=== PATIENT | female | born 1995 | race Caucasian/White ===

== ENCOUNTER → 2023-02-08 11:03 | Outpatient (CLI) | payer OTHER, SELFPAY ==
[2023-02-08 11:48] LABS: Add Manual Diff / Slide Review NO; Basophils Absolute Auto 0 /uL (0-100); Basophils Percent Auto 0.4 % (0-2); Eosinophils Absolute Auto 100 /uL (0-450); Eosinophils Percent Auto 0.8 % (2-4); Hematocrit 40.5 % (36-46); Hemoglobin 14.1 g/dL (12.0-16.0); Lymphocytes Absolute Auto 1000 /uL (1100-4500); Lymphocytes Percent Auto 15.4 % (25-40); Mean Corpuscular HGB Conc 34.7 % (30-36); Mean Corpuscular Hemoglobin 31.7 PG (26-34); Mean Corpuscular Volume 91.3 fL (80-100); Monocytes Absolute Auto 300 /uL (0-900); Monocytes Percent Auto 4.7 % (3-14); Neutrophils Absolute Auto 5200 /uL (1500-7000); Neutrophils Percent Auto 78.7 % (50-75); Platelet Count 215 X10^3/uL (150-400); Red Blood Cell Count 4.44 X10^6/uL (4.0-5.2); Red Cell Distribution Width 12.5 % (11.6-14.8); White Blood Cell Count 6.6 X10^3/uL (4.5-11.0)
[2023-02-08 13:21] LABS: Hepatitis B Surface Antigen NEGATIVE s/c (NEGATIVE); Rubella Antibody IgG 12.9 IU/mL (>15)
[2023-02-08 13:36] LABS: HIV 1 & 2 Ab/Ag 4th Gen Combo NEGATIVE (NEGATIVE); Hep C Virus Ab w/Reflex Quant NEGATIVE s/c (NEGATIVE)
[2023-02-09 07:07] LABS: RPR Screen Non Reactive (Non Reactive)
[2023-02-09 13:40] LABS: Varicella IgG Antibody <135 index (Immune >165)
== END ==
PROVIDERS: Referring Provider Specialist; Visit Provider Specialist
DX: Z34.80 Encounter for supervision of other normal pregnancy, unspecified trimester (principal)
CPT/HCPCS: 36415; 80055; 86787; 86803; 86850; 86900; 86901; 87086; 87389

== ENCOUNTER → 2023-03-23 10:22 | Outpatient (CLI) | payer OTHER, SELFPAY ==
[2023-03-25 19:36] LABS: AFP, Serum 64.1 ng/mL (.); Estriol, Free 2.02 ng/mL (.); Inhibin A, Dimeric 244.05 pg/mL (.); Inhibin A, MoM 1.38 (.); Maternal Ethnicity Caucasian (.); Maternal Weight 130 lbs (.); Number of Fetuses No (.); OSBR Risk 1 IN 7603 (.); Results Report (.); Test Results *Screen Negative* (.); hCG, MoM 0.77 (.); hCG, Serum 23148 mIU/mL (.)
== END ==
PROVIDERS: Referring Provider Physician Assistant Medical; Visit Provider Physician Assistant Medical
DX: Z3A.19 19 weeks gestation of pregnancy (principal); Z34.82 Encounter for supervision of other normal pregnancy, second trimester
CPT/HCPCS: 36415; 82105; 82677; 84702; 86336

== ENCOUNTER → 2023-03-31 16:05 | Outpatient (CLI) | payer OTHER, SELFPAY ==
--- NOTE | 2023-03-31 16:07 | DI.US.S_ITS ---
PROCEDURE: US OB >= 14 WEEKS FETUS INDICATIONS: ANATOMY OUTSIDE/PRIOR DATING DATA: Last menstrual period (LMP): 11/09/2022. LMP-based estimated date of delivery (BRIANNA): 08/16/2023. First dating scan (date and location): 02/08/2023. Estimated date of delivery (BRIANNA) from first dating scan: 08/14/2023. The calculations are made using the clinical BRIANNA of 08/16/2023. TECHNIQUE: Real-time scanning was performed of the fetus, with image documentation and biometric measurements. Endovaginal scanning: Not performed COMPARISON: None. FINDINGS: General: A single living intrauterine gestation is present. Presentation: Vertex. Placenta: Placental position is posterior , without previa. Amniotic fluid index: 14 cm, normal range is 5-24 cm. Single deepest vertical pocket is 4.4 cm. heart rate: 157 beats per minute. Maternal cervical canal: 3.9 cm long. Normal lower limit is 2.5 cm. biometrics: Biparietal diameter: 4.8 cm, 20 weeks 4 days Head circumference: 18 cm, 20 weeks 3 days Abdominal circumference: 15 cm, 20 weeks 0 days Femur length: 3.2 cm, 20 weeks 1 day Clinically estimated gestational age: 20 weeks 2 days Composite gestational age from present scan: 20 weeks 3 days Estimated weight and percentile: 340 g, 42 percentile Anatomic survey: Neuro: Ventricles are non-dilated at less than 10 mm. Cisterna magna is normal at 3-11 mm. Cerebellum is normal in size and morphology. Nuchal skin fold: Normal at less than 6 mm between 14-21 weeks gestational age. Face: Nose and lips, facial profile are normal. Spine: No evidence for spina bifida. Heart: 4-chambered heart is present, with normal ventricular outflow tracts. Diaphragm: Diaphragm is intact. Stomach: Left-sided stomach is present. Kidneys: No hydronephrosis. Normal is less than 5 mm in 2nd trimester, less than 7 mm in 3rd trimester. Cord: 3-vessel cord has orthotopic insertion. Bladder: Normal in size. Extremities: All 4 extremities identified. IMPRESSION: Single living intrauterine at 20 weeks 2 days, BRIANNA 08/16/2023. Normal anatomy survey. Estimated weight of 346 g, 42 percentile. We strive to produce accurate, complete, and clear reports of imaging services. To assist us in improving patient care, this report was composed using standard report templates and voice recognition software. Therefore, it may contain abnormal punctuation, insertions and/or omissions. Occasional wrong-word or sound-alike substitutions may occur. Though we review the report and make efforts to correct it, we do recommend that the report be read carefully in proper context to recognize any text inaccuracies. Dictated by: Paolo Murphy M.D. on 03/31/2023 at 19:36 Approved by: Paolo Murphy M.D. on 03/31/2023 at 19:38
== END ==
PROVIDERS: Referring Provider Family Medicine; Visit Provider Family Medicine
DX: Z34.82 Encounter for supervision of other normal pregnancy, second trimester (principal); Z3A.20 20 weeks gestation of pregnancy
CPT/HCPCS: 76811

== ENCOUNTER → 2023-05-09 15:24 | Outpatient (CLI) | payer OTHER, SELFPAY | PROVIDERS: Visit Provider Family Medicine | DX: N76.0 Acute vaginitis (principal); B96.89 Other specified bacterial agents as the cause of diseases classified elsewhere | CPT/HCPCS: 87210 ==

== ENCOUNTER 2023-05-11 09:02 | Outpatient (CLI) | payer OTHER, SELFPAY ==
[2023-05-11 09:38] LABS: Appearance Urine UA SL CLOUDY; Bilirubin Urine UA NEGATIVE (NEGATIVE); Color Urine UA YELLOW; Glucose Urine UA NEGATIVE (Negative); Ketones Urine UA NEGATIVE (NEGATIVE); Leukocyte Esterase Urine UA 3+ (NEGATIVE); Nitrite Urine UA NEGATIVE (Negative); Occult Blood Urine UA TRACE-INTACT (Negative); Protein Urine UA NEGATIVE (Negative); Urobilinogen Urine UA 0.2 E.U./dL (0.2)
[2023-05-11 09:42] LABS: pH Urine UA 7.5 (4.5-8.0)
[2023-05-11 09:53] LABS: Bacteria Urine Many (>30); RBC Urine None Seen (0-5/HPF); WBC Urine 10-30/HPF (0-5/HPF)
[2023-05-11 09:54] LABS: Culture Indicated Urine Specimen Cultured; Squamous Epithelial Cell Urine 10-30 /HPF (0-5/HPF)
== END 2023-05-11 10:10 | disposition home or self-care (01) ==
LOC: LABOR 09:35 → OB 05-12 11:03
PROVIDERS: Referring Provider Family Medicine; Visit Provider Family Medicine
DX: O98.812 Other maternal infectious and parasitic diseases complicating pregnancy, second trimester (principal); O26.892 Other specified pregnancy related conditions, second trimester; M54.50 Low back pain, unspecified; Z3A.26 26 weeks gestation of pregnancy
CPT/HCPCS: 59025; 81001; 87086; G0378; G0379

== ENCOUNTER → 2023-05-13 07:45 | Outpatient (CLI) | payer OTHER, SELFPAY ==
[2023-05-13 10:18] LABS: GTT (PREG) 1 Hour PP 50gm Dose 155 mg/dL (76-139)
== END ==
PROVIDERS: Referring Provider Family Medicine; Visit Provider Family Medicine
DX: Z34.80 Encounter for supervision of other normal pregnancy, unspecified trimester (principal)
CPT/HCPCS: 36415; 82950

== ENCOUNTER → 2023-05-29 07:41 | Outpatient (CLI) | payer OTHER, SELFPAY ==
[2023-05-29 09:57] LABS: Glucose Fasting Gestational 78 mg/dL (76-95)
[2023-05-29 10:25] LABS: Glucose 1 Hour Gest 131 mg/dL (76-180)
[2023-05-29 11:00] LABS: Glucose Tol Interp,Gestational INTERPRETATION
[2023-05-29 12:54] LABS: Glucose 2 Hour Gest 115 mg/dL (76-155)
[2023-05-29 14:27] LABS: Glucose 3 Hour Gest 43 mg/dL (76-140)
== END ==
PROVIDERS: Referring Provider Family Medicine; Visit Provider Family Medicine
DX: O99.810 Abnormal glucose complicating pregnancy (principal)
CPT/HCPCS: 36415; 82951; 82952

== ENCOUNTER → 2023-07-21 10:51 | Outpatient (CLI) | payer OTHER, SELFPAY ==
[2023-07-22 16:02] LABS: Strep Grp B PCR POS for Grp B Strep
== END ==
PROVIDERS: Visit Provider Family Medicine
DX: Z34.80 Encounter for supervision of other normal pregnancy, unspecified trimester (principal)
CPT/HCPCS: 87653

== ENCOUNTER → 2023-08-11 16:32 | Outpatient (CLI) | payer OTHER, SELFPAY ==
[2023-08-11 19:56] LABS: Urine N gonorrhoeae NOT DETECTED
[2023-08-11 20:06] LABS: Urine Chlamydia NOT DETECTED
== END ==
PROVIDERS: Visit Provider Family Medicine
DX: O23.593 Infection of other part of genital tract in pregnancy, third trimester (principal)
CPT/HCPCS: 87491; 87591

== ENCOUNTER 2023-08-16 16:42 | Inpatient (IN) | payer OTHER, SELFPAY ==
--- NOTE | 2023-08-16 17:51 | PM.OBHP.IH.1 ---
OB HPI Date/Time Date of admission: 08/16/23 Date Patient Seen: 08/16/23 Time Patient Seen: 17:21 History of Present Condition Chief complaint: Date of Last Menstrual Period: 11/09/22 BRIANNA Calculator Estimated Delivery Date Method Current WG Current Estimate 08/16/23 LMP (Certain) 40w 0d Other Estimates 08/14/23 Ultrasound #1 40w 2d 08/16/23 Ultrasound #2 40w 0d Estimated Gestational Age (weeks): 40 : 2 Para: 1 care: good care Dating criteria OB: LMP confirmed by 1st trimester US Ultrasounds: normal 1st trimester US and normal mid trimester US Obstetrical complications: other (rubella and varicella non-immune) Medical complications OB: none Narrative: 28-year-old at [place] 40+0 weeks presenting with strong contractions q2-3 minutes. Was seen at clinic earlier today, cervical exam at that time to 3 cm dilated with bloody show. Endorses normal movement, denies leakage of fluid. complicated by maternal rubella and varicella non-immune status. Preadmission Labs Last OB Lab Results: Blood Type A Positive 08/16/23 18:00 Antibody Screen Negative 08/16/23 18:00 Hematocrit 40.7 % (36-46) 08/16/23 18:00 Hemoglobin 13.8 g/dL (12.0-16.0) 08/16/23 18:00 Hepatitis B Surface Antigen Negative s/c (NEGATIVE) 02/08/23 11:06 Hepatitis C Antibody Negative s/c (NEGATIVE) 02/08/23 11:06 Rubella Antibody 12.9 IU/mL (>15) L 02/08/23 11:06 Varicella-Zoster IgG Antibody <135 index (Immune >165) L 02/08/23 11:06 Glucose 1 Hour 155 mg/dL (76-139) H 05/13/23 09:12 Group B Streptococcus (PCR) Pos for grp b strep H 07/21/23 10:51 Glucose Tolerance Testin hr (abnormal) and 3 hr (normal) -: Chlamydia screen: negative and Gonorrhea screen: negative Genetic Screens: Quad screen: Normal Prior (ies) Past Pregnancies Del. Date GA/Weeks Labor Lgth Wt Sex Route Outcome Anesthesia Place Delv Breastfeed Preg Comp Name 05/30/21 40 36 6 lb 1 oz Male vaginal live - full term epidural SHERRELL Welch 4 months other [place] Delivery Date: 05/30/21 Last Updated by: Page Liu RN incorrectly Dx'd IUGR, marginal cord insertion Evaluation Evaluation Baseline heart rate: 140 Variability: Moderate (11-25) monitor accelerations: Present Monitor Decelerations: Absent Contraction Frequency (minutes): 3 Uterine Contraction Intensity: Moderate Category of Tracing: Reactive Status: Category l Dilation (cm): 7 Effacement (%): 90 Dilation: >/=5 cm Effacement: >/=80% station: -2 Position of cervix: anterior Consistency: soft Cole score: 11 [facility] Medical History (Updated 08/16/23 @ 10:59 by Tanner Leiva MD) Bacterial vaginosis Family history of keratoconjunctivitis sicca in Sjogren's syndrome Family history of psoriatic arthritis Benign tumor Vertebral fracture Surgical History (Updated 01/30/23 @ 13:07 by Page Liu RN) History of rhinoplasty [place] teeth extracted History of skin surgery Family History (Updated 01/30/23 @ 13:09 by Page Liu RN) Father Dementia Diabetes mellitus Mother Arthritis Sjogrens syndrome Brother Polycystic kidney disease Grandmother Diabetes mellitus Social History marital status: number of children: 1 household members: spouse and children lives independently: Yes caregiver/support person: Yes housing: [facility]) pets and animals: Yes (dog) education level: college (associate's degree) occupational status: unemployed current occupational exposures/hazards: No special liudmila needs: No travel history: recent (cross-country move, [place], [place]) seatbelt use: always water heater temp set < 120 deg: Yes working smoke detector in home: Yes fire extinguisher in home: Yes carbon monox detector in home: Yes firearms in home: No Smoking Status: Never smoker second hand exposure: No alcohol intake: former substance use type: does not use during the past year weight has: remained stable well-balanced diet: about half the time daily servings fruits/ve-4 caffeine: Yes (AM cup coffee) Type(s) of exercise: walking Meds Home Medications and Allergies Home Medications Medication Instructions Recorded Confirmed Type vitamin-ferrous sulfate tab PO 01/30/23 08/16/23 History 27 mg iron-folic acid 0.8 mg tablet Allergies Allergy/AdvReac Type Severity Reaction Status Date / Time No Known Drug Allergies Allergy Verified 08/16/23 10:27 Review of Systems Review of Systems ROS: Yes All systems reviewed with the patient and are negative except as otherwise documented OB Exam Narrative Exam Narrative: General: Pleasant, well nourished, no distress HEENT: NC/AT, EOMI, moist mucous membranes CV: RRR, no m/g/r Resp: CTAB Abdomen: Gravid, nontender, +BS Extremities: No edema Neuro: A&O x3, moves all extremities Objective Labs 08/16/23 18:00 Assessment and Plan Assessment and Plan Assessment and Plan narrative: 28-year-old at [place] 40+0 weeks presenting for normal labor. complicated by maternal rubella and varicella non-immune status. -admit to L&D -GBS pos, ppx indicated -pain control prn if desired by patient -PPH risk low -VTE risk low, SCDs with epidural -anticipate vaginal delivery Time Spent with Patient Total time spent with greater than 50% in coordination of care (as documented) at patient's floor/unit and/or counseling patient:: 15-24 minutes
[2023-08-16 18:12] LABS: Add Manual Diff / Slide Review NO; Basophils Absolute Auto 0 /uL (0-100); Basophils Percent Auto 0.2 % (0-2); Eosinophils Absolute Auto 0 /uL (0-450); Hematocrit 40.7 % (36-46); Hemoglobin 13.8 g/dL (12.0-16.0); Lymphocytes Absolute Auto 1500 /uL (1100-4500); Lymphocytes Percent Auto 12.2 % (25-40); Mean Corpuscular HGB Conc 33.8 % (30-36); Mean Corpuscular Hemoglobin 31.1 PG (26-34); Mean Corpuscular Volume 92.1 fL (80-100); Monocytes Absolute Auto 800 /uL (0-900); Monocytes Percent Auto 6.9 % (3-14); Neutrophils Absolute Auto 9800 /uL (1500-7000); Neutrophils Percent Auto 80.7 % (50-75); Platelet Count 182 X10^3/uL (150-400); Red Blood Cell Count 4.42 X10^6/uL (4.0-5.2); Red Cell Distribution Width 13.1 % (11.6-14.8); White Blood Cell Count 12.2 X10^3/uL (4.5-11.0)
--- NOTE | 2023-08-16 18:33 | PM.AN.REGBLK ---
Regional Block Pre-procedure PMH/ROS narrative: See paper pre-op Labs: Hct 40.7 % (36-46) 08/16/23 18:00 Plt Count 182 X10^3/uL (150-400) 08/16/23 18:00 Medications: Current Medications Generic Name Dose Route Start Last Admin Trade Name Freq PRN Reason Stop Dose Admin Calcium Carbonate 1,000 mg 08/16/23 17:42 Calcium Carbonate 500 Mg Tab PO Q4HR PRN Dyspepsia Carboprost Tromethamine 250 mcg 08/16/23 17:42 Carboprost 250 Mcg/Ml Ampul IM Q90M PRN Bleeding Diphenhydramine HCl 25 mg 08/16/23 17:46 Diphenhydramine 50 Mg/Ml Vial IV Q10M PRN Pruritis Ephedrine Sulfate 10 mg 08/16/23 17:46 Ephedrine 50 Mg/Ml Vial IV Q5M PRN Blood pressure decrease more than 20% of baseline. Fentanyl 50 mcg 08/16/23 17:42 Fentanyl 100 Mcg/2 Ml Inj IV Q1H PRN Pain, Moderate (4-6) Lactated Ringer's 1,000 mls @ 1,000 mls/hr 08/16/23 17:46 Lactated Ringers IV 08/16/23 18:45 BOLUS ONE FENT 2MCG/ML BUPIV 0.125% EPI 200 mcg in 100 mls @ 10 mls/hr 08/16/23 18:00 Fentanyl/Bupiv/Ns 2mcg/Ml - 0.125% EPIDURAL CONT ITALO Oxytocin/Lactated Ringer's 30 unit in 500 mls @ 2 mls/hr 08/16/23 17:45 Oxytocin Premix IV TITRATE ITALO Protocol 2 MILLIUNIT/MIN Oxytocin/Lactated Ringer's 30 unit in 500 mls @ 200 mls/hr 08/16/23 17:42 Oxytocin Premix IV CONT PRN Bleeding Protocol Ampicillin Sodium 1,000 mg/ 100 mls @ 200 mls/hr 08/16/23 22:00 Sodium Chloride IV Q4H ITALO Lactated Ringer's 1,000 mls @ 100 mls/hr 08/16/23 17:45 Lactated Ringers IV CONT ITALO Tranexamic Acid 1,000 mg/ 100 mls @ 200 mls/hr 08/16/23 17:42 Sodium Chloride IV NOW PRN Bleeding Lidocaine HCl 20 ml 02/07/24 17:42 Lidocaine 1% 20 Ml INJ INTRA-OP PRN Post Delivery Methylergonovine Maleate 0.2 mg 08/16/23 17:42 Methylergonovine 0.2 Mg/Ml Vial IM NOW PRN Bleeding Methylergonovine Maleate 0.2 mg 08/16/23 17:42 Methylergonovine 0.2 Mg Tablet PO Q6HR PRN Heavy Bleeding Misoprostol 800 mcg 08/16/23 17:42 Misoprostol 200 Mcg Tablet MS NOW PRN Bleeding Misoprostol 400 mcg 08/16/23 17:42 Misoprostol 200 Mcg Tablet SL NOW PRN Bleeding Nalbuphine HCl 2.5 mg 08/16/23 17:46 Nalbuphine 20 Mg/Ml Ampul IV Q10M PRN Pruritis Naloxone HCl 0.2 mg 08/16/23 17:42 Naloxone 0.4 Mg/Ml Vial IV Q2MIN PRN Opiate Reversal Ondansetron HCl 4 mg 08/16/23 17:42 Ondansetron 4 Mg/2 Ml Inj IV Q4HR PRN Nausea And Vomiting Oxytocin 10 unit 08/16/23 17:42 Oxytocin 10 Unit/Ml Vial IM NOW PRN Bleeding Allergies: Allergies Allergy/AdvReac Type Severity Reaction Status Date / Time No Known Drug Allergies Allergy Verified 08/16/23 10:27 Procedure Insertion date: 08/16/23 Insertion time: 18:09 Prep/Local: 1% lidocaine (Chloroprep, sterile drape, sterile gloves, mask, hat) Interspace: L3/4 Patient position: sitting Needle: 17 gauge Tuohy Loss of resistance with: saline LORI at (cm): 6 Catheter placed at SKIN (cm): 11 Catheter in SPACE (cm): 5 Initial Medications TEST DOSE time: 18:10 TEST DOSE: 1.5% lidocaine with epinephrine 1:200k (mL): 3 BOLUS DOSE time: 18:25 BOLUS DOSE (mL): 5 BOLUS DOSE med: other (3 mL 1% Lido, 2 mL 1.5% lido c epi) Infusion INFUSION: 0.125% bupivacaine and with fentanyl 2 mcg/mL Initial rate (mL/hr): 10 Post-procedure Anesthesia date START: 08/16/23 Anesthesia time START: 18:03
[2023-08-16] MEDS: ePHEDrine 50 MG/ML VIAL 10 MG IV (19:03)
[2023-08-16] MEDS: AMPICILLIN 2,000 MG in SODIUM CHLORIDE 0.9% 100 ML 200 MG IV (19:03)
[2023-08-16] MEDS: AMPICILLIN 1,000 MG in SODIUM CHLORIDE 0.9% 100 ML 200 MG IV (23:22)
[2023-08-16] MEDS: FENT 2MCG/ML BUPIV 0.125% EPI 200 MCG/100 ML PLAST..BAG 10 MCG EPIDURAL (23:30)
--- NOTE | 2023-08-17 01:20 | P.PCNOB_ITS ---
Labor & Delivery Delivery date: 08/17/23 Intrapartal Events: None Cervical ripening method: none Induction method: none Delivery monitor: external FHT and external uterine Route of delivery: L&D Laceration Description: Perineal - 2nd Degree and Vaginal - 1st Degree Delivery repair: vicryl (3-0) Estimated blood loss (mL): 300 Anesthesia Type: Epidural Narrative: Patient fully dilated at 2358 and began pushing at 0026. Spontaneous vaginal delivery of a viable male infant in the OA position occurred at 0031. The was suctioned and stimulated at the perineum, and gave appropriate cry with movement of all extremities. Delayed cord clamping was observed for over 60 seconds. The cord was clamped and cut, and the handed to mother for skin to skin. Cord blood and segment were obtained. The placenta was delivered without difficulty using gentle cord traction and found to be intact with a 3- vessel cord. After fundal massage the uterus was firm and bleeding stopped. The vagina and cervix were examined for lacerations. A second-degree perineal laceration was noted and repaired with 3-0 Vicryl suture in the usual fashion. A first-degree vaginal sidewall laceration was noted to be hemostatic and no repair was performed. Patient stable. Baby 1: gender: Male Presentation: vertex Placenta delivery description: Spontaneous Cord Vessel Description: 3 Vessels score (1 min): 9 score (5 min): 10 weight: 7 lb 6.062 oz Plan for aftercare: Routine care
[2023-08-17] MEDS: LANOLIN OINT 7 GM 1 APPLIC TOP (04:08)
[2023-08-17] MEDS: IBUPROFEN 600 MG TABLET PO ×3 (04:08→22:37)
[2023-08-17] MEDS: DERMOPLAST SPRAY 20% 60 ML 1 SPRAY TOP (04:08)
[2023-08-17] MEDS: DOCUSATE 100 MG CAPSULE PO (10:37)
[2023-08-17] MEDS: ACETAMINOPHEN 325 MG TABLET 650 MG PO ×3 (10:37→22:37)
[2023-08-18] MEDS: ACETAMINOPHEN 325 MG TABLET 650 MG PO (04:31)
[2023-08-18] MEDS: IBUPROFEN 600 MG TABLET PO (04:32)
--- NOTE | 2023-08-18 10:30 | P.DS_ITS ---
Discharge Providers Provider Date of admission: 08/16/23 16:42 Discharge Date: 08/18/23 Primary care physician: Aiden OLVERA Provider Consults: 08/18/23 01:53 Consult to Senior [employer] Routine Comment: Discharge provider: Tanner Leiva MD Summary Hospital Course Date Patient Seen: 08/18/23 Time Patient Seen: 09:45 Diagnoses: #Spontaneous vaginal delivery #2nd degree perineal laceration #Rubella non-immune #Varicella non-immune Hospital Course: Admitted for normal labor on 08/16/2023. Progressed adequately without augmentation to complete dilation over the course of 9 hours 26 minutes. She had an uncomplicated of live male infant with a second degree perineal laceration that was repaired. course was uncomplicated. At discharge patient is ambulating well, tolerating normal diet, breast-feeding without difficulty, and pain is adequately controlled. She reports bleeding is similar to menses without clots or large gushes. Peripartum Data Infant Delivery Method: Natural Vaginal Laceration Description: Perineal - 2nd Degree and Vaginal - 1st Degree complications: none [place] 1: Gender: Male Disposition of : home Discharge Diagnosis (1) (spontaneous vaginal delivery): Status: Acute (2) Maternal varicella, non-immune: Status: Acute (3) Rubella non-immune status, antepartum: Status: Acute (4) Second-degree perineal laceration during delivery: Status: Acute Status at Discharge Cognitive/behavioral status at discharge: at baseline, oriented Functional status at discharge: independent ambulation Overall status at discharge: patient is back to baseline Time Spent with Patient Time attestation: Total time spent providing and/or coordinating discharge services: Time spent: Less than 30 minutes Objective Labs 08/16/23 18:00 Exam Narrative Exam Narrative: General: Well-appearing, well-nourished, no distress HEENT: Moist mucous membranes, no pallor CV: Regular rate and rhythm, no murmur auscultated Resp: CTAB, comfortable work of breathing Abdomen: Soft, bowel sounds present, fundus firm below umbilicus with appropriate tenderness Extremities: No edema, well-perfused, no calf tenderness or evidence of DVT Discharge Plan Discharge Plan Patient Disposition: Home Discharge orders & Medications Prescriptions: New acetaminophen 325 mg Tablet 650 mg PO Q6H PRN (Reason: Fever/Mild Pain (1-3)) Qty: 60 1RF Dermoplast (with menthol) 20-0.5 % Aerosol 1 spray topical Q1HR PRN (Reason: perineal pain) Qty: 78 1RF docusate sodium 100 mg Capsule 100 mg PO DAILY Qty: 30 1RF ibuprofen 600 mg Tablet 600 mg PO Q6HR PRN (Reason: Pain, Mild (1-3)) Qty: 60 1RF Purelan Cream 1 applic topical PRN PRN (Reason: Tenderness) Qty: 7 3RF polyethylene glycol 3350 [Miralax] 17 gram/dose powder 17 g PO DAILY Qty: 510 2RF Continued vit-ferrous sulfat-FA 27 mg iron- 0.8 mg tablet PO Follow up/Referrals: Tanner Leiva MD [Physician] - 09/29/23 11:00 am ProviderAiden [Primary Care Provider] - Visit Report/Discharge Packet Instructions: DI for Hemorrhage, Depression Stand Alone Forms: Discharge: Care, Patient Portal/API, Stroke Signs & Symptoms Discharge Data Primary Care Provider: Aiden Elliott Discharges patient from system. Discharge Date/Time: 08/18/23 11:15
[2023-08-18] MEDS: MEASLES,MUMPS,RUBELLA VACC/PF 0.5 ML VIAL SUBCUT (10:57)
== END 2023-08-18 11:15 | disposition home or self-care (01) | DRG 807 ==
PROVIDERS: Admitting Provider Family Medicine; Referring Provider Family Medicine; Visit Provider Family Medicine
DX: O99.824 Streptococcus B carrier state complicating childbirth (principal); Z37.0 Single live birth; O70.1 Second degree perineal laceration during delivery; Z3A.40 40 weeks gestation of pregnancy
CPT/HCPCS: 36415; 59050; 59400; 85025; 86850; 86900; 86901; G0379; J0290